=== PATIENT | female | born 1980 | race African-American/Black ===

== ENCOUNTER → 2022-12-05 | Outpatient (CLI) | payer OTHER ==
[~2022-12-05] MED LIST: ADVIL200 MG PO; AMOXICILLIN 50500 MG PO; MAGIC MOUTH PO; PEPCID 20MG TAB20 MG; PERCOCET 325 MG1 TA2 PO; PRENATAL1 TA1 PO; PRILOSEC 20MG20 MG PO; STOOL SOFTENER
== END ==
LOC: MC.RAD 16:39
DX: Z12.31 Encounter for screening mammogram for malignant neoplasm of breast (principal)